=== PATIENT | female | born 1945 | race Caucasian/White ===

== ENCOUNTER 2017-02-07 10:46 | Outpatient (CLI) | payer MEDICARE, OTHER | END 2017-02-07 10:47 | disposition home or self-care (01) | DX: I10 Essential (primary) hypertension (principal); R07.89 Other chest pain; E78.5 Hyperlipidemia, unspecified; R53.82 Chronic fatigue, unspecified; R00.2 Palpitations; I65.23 Occlusion and stenosis of bilateral carotid arteries; R42 Dizziness and giddiness; R25.1 Tremor, unspecified ==

== ENCOUNTER 2017-05-24 09:06 | Outpatient (CLI) | payer MEDICARE, OTHER ==
[2017-05-24 10:51] LABS: CHOL/HDL RATIO 2.8 (<4.4); CHOLESTEROL 150 mg/dL; HDL CHOLESTEROL 53 mg/dL; LDL/HDL RATIO 1.4 (<4.4); TRIGLYCERIDES 103 mg/dL; VLDL CHOLESTEROL 21 mg/dL
== END 2017-05-24 09:07 | disposition home or self-care (01) ==
LOC: LAB 09:06
PROVIDERS: ATTEND Family Medicine
DX: E78.5 Hyperlipidemia, unspecified (principal)
CPT/HCPCS: 36415; 80061

== ENCOUNTER 2017-08-17 11:23 | Outpatient (CLI) | payer MEDICARE, OTHER ==
--- NOTE | 2017-08-18 10:07 | Mammography Report ---
DIGITAL BILATERAL SCREENING MAMMOGRAM: 08/17/2017 COMPARISON STUDY: 08/17/2016 INDICATION: Screening mammography. TECHNIQUE: Routine CC and MLO projections were obtained of the breasts. FINDINGS: Parenchymal tissue within both breasts is heterogeneously dense, which may lower the sensi tivity of mammography; however, there are no dominant masses, suspicious microcalcifications, or seco ndary signs of malignancy. In comparison to the previous studies, there are no significant changes. Stable postsurgical changes of the right breast. There are bilateral subglandular implants. ASSESSMENT: NO MAMMOGRAPHIC EVIDENCE OF MALIGNANCY. NO SIGNIFICANT INTERVAL CHANGES. RECOMMENDATION: Screening mammography is recommended annually. BIRADS CATEGORY 2- BENIGN FINDINGS. STANDARD QUALIFYING STATEMENTS 1. This examination was reviewed with the aid of Computed-Aided Detection (CAD). 2. A negative or benign imaging report should not delay biopsy if clinically suspicious findings are present. Consider surgical consultation if warranted. More than 5% of cancers are not identified by i maging. 3. Dense breasts may obscure an underlying neoplasm. JOB #: [id number] EXT JOB #:[id number]
== END 2017-08-17 11:24 | disposition home or self-care (01) ==
LOC: DI 11:23
PROVIDERS: ATTEND Family Medicine
DX: Z12.31 Encounter for screening mammogram for malignant neoplasm of breast (principal); Z98.82 Breast implant status
CPT/HCPCS: 77067

== ENCOUNTER 2018-06-05 09:17 | Day surgery (SDC) | payer MEDICARE, OTHER ==
[2018-06-05] MEDS ORDERED: LACTATED RINGERS 1,000 ML IV ONE (09:54)
[2018-06-05] MEDS ORDERED: LIDO GARGLE 30 ML BOTTLE ONE (10:27)
[2018-06-05] MEDS ORDERED: MIDAZOLAM 2 MG/2 ML VIAL IVP ONE (10:33)
[2018-06-05] MEDS ORDERED: fentaNYL 250 MCG/5 ML VIAL IVP ONE (10:33)
[2018-06-05 12:16] VITALS: BP 131/81
== END 2018-06-05 09:18 | disposition home or self-care (01) ==
LOC: SDS 09:17
PROVIDERS: ATTEND Surgery
PROC: 0DB78ZX Excision of Stomach, Pylorus, Via Natural or Artificial Opening Endoscopic, Diagnostic (ICD-10-PCS; 2018-06-05)
PROC: 0DJD8ZZ Inspection of Lower Intestinal Tract, Via Natural or Artificial Opening Endoscopic (ICD-10-PCS; principal; 2018-06-05 10:30)
PROC: 0DB58ZX Excision of Esophagus, Via Natural or Artificial Opening Endoscopic, Diagnostic (ICD-10-PCS; 2018-06-05 10:30)
DX: K21.9 Gastro-esophageal reflux disease without esophagitis (principal); R10.13 Epigastric pain; K20.9 Esophagitis, unspecified; K25.9 Gastric ulcer, unspecified as acute or chronic, without hemorrhage or perforation; K64.8 Other hemorrhoids; K64.4 Residual hemorrhoidal skin tags; I10 Essential (primary) hypertension
CPT/HCPCS: 43239; 45378; 87081; A9270; J3010; J7120

== ENCOUNTER 2018-07-25 10:37 | Outpatient (CLI) | payer MEDICARE, OTHER ==
--- NOTE | 2018-07-25 16:32 | Ultrasound Report ---
Reason: CAROTID STENOSIS Procedure Date: 07/25/2018 Accession Number: [id number] / [id number] Procedure: US - Carotid Doppler Complete CPT Code: FULL RESULT: EXAM: BILATERAL CAROTID AND VERTEBRAL ARTERY DUPLEX DOPPLER ULTRASOUND: EXAM DATE: 07/25/2018 11:40 AM CLINICAL HISTORY: Carotid stenosis. COMPARISON: None. TECHNIQUE: Grayscale imaging, color Doppler, and duplex spectral Doppler were used to evaluate the carotid and vertebral arteries bilaterally. Static images were obtained. FINDINGS: Subjectively, there is 3 mm thick hypoechoic/soft plaque at the left carotid bulb. Similar focal hypoechoic/soft plaque is seen in the right carotid bulb, subjectively less. No hemodynamically significant plaque is identified in the right or left common or internal carotid arteries. Normal antegrade flow is present in bilateral vertebral arteries. VELOCITIES (cm/sec): Right CCA mid: PSV 95 cm/sec CCA dist: PSV 77 cm/sec ICA prox: PSV 63 cm/sec, EDV 20 cm/sec ICA mid: PSV 79 cm/sec, EDV 24 cm/sec ICA dist: PSV 105 cm/sec, EDV 33 cm/sec ECA: PSV 72 cm/sec Vert: PSV 54 cm/sec ICA/CCA: 1.36 Left CCA mid: PSV 93 cm/sec CCA dist: PSV 67 cm/sec ICA prox: PSV 55 cm/sec, EDV 14 cm/sec ICA mid: PSV 57 cm/sec, EDV 21 cm/sec ICA dist: PSV 78 cm/sec, EDV 31 cm/sec ECA: PSV 76 cm/sec Vert: PSV 58 cm/sec ICA/CCA: 1.16 ICA diameter stenosis: Right: <50% by velocity and <70% by NASCET criteria. Left: <50% by velocity and <70% by NASCET criteria. IMPRESSION: 1. No hemodynamically significant bilateral carotid artery plaquing. 2. In the right carotid artery there are no elevated carotid artery velocities to suggest hemodynamically significant stenosis. 3. In the left carotid artery there are no elevated carotid artery velocities to suggest hemodynamically significant stenosis. 4. Normal antegrade flow is present in bilateral vertebral arteries. General Recommendations: Stenosis =50% ICA - Follow-up ultrasound 6-12 months Stenosis <50% ICA - High Risk Patient with plaque - Follow-up ultrasound 1-2 years Normal Study but High Risk Patient - Follow-up ultrasound 3-5 years Management recommendations and diagnostic criteria are based on current IAC endorsed standards in Carotid Artery Stenosis: Grayscale and Doppler Ultrasound Diagnosis. Validated velocity measurements with angiographic measurements and velocity criteria are extrapolated from diameter data as defined by the Society of Radiologists in Ultrasound Consensus Conference Radiology 2003; 229;340-346. RADIA
== END 2018-07-25 10:38 | disposition home or self-care (01) ==
LOC: DI 10:37
PROVIDERS: ATTEND Family Medicine
DX: I65.29 Occlusion and stenosis of unspecified carotid artery (principal)
CPT/HCPCS: 93880

== ENCOUNTER 2018-08-18 10:57 | Outpatient (CLI) | payer MEDICARE, OTHER ==
--- NOTE | 2018-08-21 12:35 | Mammography Report ---
Reason: SCREEN w IMPS BALBIR Procedure Date: 08/18/2018 Accession Number: [id number] / [id number] Procedure: [facility] - Screening Mammo Impl w/Balbir CPT Code: FULL RESULT: EXAM: Screening Mammo Impl w/Balbir DATE: 08/18/2018 11:50 AM CLINICAL HISTORY: 72 year-old nulliparous female with history of silicone breast implants in 1981 and breast biopsy . TECHNIQUE: Bilateral CC and MLO views were obtained. Bilateral CC and MLO implant displaced views were also obtained. COMPARISON: 08/17/2017, 08/17/2016, 08/15/2015, 08/06/2014. FINDINGS: The breasts demonstrate heterogeneously dense fibroglandular parenchyma bilaterally. Redemonstration of bilateral breast implants. Postbiopsy changes of the right breast are stable. No suspicious masses, clustered microcalcifications, or regions of architectural distortion are identified. IMPRESSION: Benign findings RECOMMENDATION: Routine annual screening unless otherwise clinically indicated. BIRADS CATEGORY 2: Benign findings STANDARD QUALIFYING STATEMENTS: 1. This examination was not reviewed with the aid of Computer-Aided Detection (CAD). 2. A negative or benign imaging report should not delay biopsy if clinically suspicious findings are present. Consider surgical consultation if warrented. More than 5% of cancers are not identified by imaging. 3. Dense breasts may obscure an underlying neoplasm. 4. This examination was reviewed with the aid of 3D breast imaging (tomosynthesis).
== END 2018-08-18 10:58 | disposition home or self-care (01) ==
LOC: DI 10:57
DX: Z12.31 Encounter for screening mammogram for malignant neoplasm of breast (principal); Z98.82 Breast implant status
CPT/HCPCS: 77063; 77067

== ENCOUNTER 2018-08-18 11:16 | Outpatient (CLI) | payer MEDICARE, OTHER ==
[2018-08-18 12:26] LABS: HB2 TOTAL 16.1 g/dL; HEMOGLOBIN A1C 0.54 g/dL; HEMOGLOBIN A1C % 5.2 % (4.6-6.2)
[2018-08-18 12:28] LABS: ALBUMIN 4.4 g/dL (3.2-5.5); ALBUMIN/GLOBULIN RATIO 1.6 (1.0-2.2); ALKALINE PHOSPHATASE 53 IU/L (42-121); ALT ALANINE AMINOTRANSFERASE 17 IU/L (10-60); AST ASPARTATE AMINOTRANSFERASE 24 IU/L (10-42); BUN - BLOOD UREA NITROGEN 15 mg/dL (6-20); CALCIUM 9.4 mg/dL (8.5-10.3); CARBON DIOXIDE - CO2 30 mmol/L (21-32); CHLORIDE 101 mmol/L (101-111); CHOL/HDL RATIO 2.7 (<4.4); CHOLESTEROL 177 mg/dL; CREATININE 0.7 mg/dL (0.4-1.0); GFR - MDRD 82 (>89); GLUCOSE 100 mg/dL (70-100); HDL CHOLESTEROL 65 mg/dL; LDL CHOLESTEROL,CALCULATED 90 mg/dL; LDL/HDL RATIO 1.4 (<4.4); SODIUM 140 mmol/L (135-145); TOTAL PROTEIN 7.1 g/dL (6.7-8.2); VLDL CHOLESTEROL 22 mg/dL
[2018-08-18 12:31] LABS: BASOPHILS % (AUTO) 0.7 %; EOSINOPHILS # (AUTO) 0.1 10^3/uL (0.0-0.7); EOSINOPHILS % (AUTO) 1.7 %; HGB - HEMOGLOBIN 14.6 g/dL (12.0-16.0); LYMPHOCYTES # (AUTO) 2.2 10^3/uL (1.5-3.5); LYMPHOCYTES % (AUTO) 33.8 %; MEAN CORPUSCULAR HEMOGLOBIN 28.8 pg (27.0-31.0); MEAN CORPUSCULAR HGB CONC 33.9 g/dL (32.0-36.0); MEAN CORPUSCULAR VOLUME 84.9 fL (81.0-99.0); MEAN PLATELET VOLUME 8.3 fL (7.9-10.8); MONOCYTES # (AUTO) 0.5 10^3/uL (0.0-1.0); MONOCYTES % (AUTO) 7.3 %; NEUTROPHILS # (AUTO) 3.7 10^3/uL (1.5-6.6); NEUTROPHILS % (AUTO) 56.5 %; PLT - PLATELET COUNT 190 10^3/uL (130-450); RED BLOOD COUNT 5.08 10^6/uL (4.20-5.40); RED CELL DISTRIBUTION WIDTH 13.3 % (12.0-15.0); WHITE BLOOD COUNT 6.5 x10^3/uL (4.8-10.8)
[2018-08-24 14:06] LABS: HEPATITIS C ANTIBODY NON-REACTIVE (NON-REACTIVE)
== END 2018-08-18 11:17 | disposition home or self-care (01) ==
LOC: LAB 11:16
PROVIDERS: ATTEND Family Medicine
DX: E78.5 Hyperlipidemia, unspecified (principal); R73.9 Hyperglycemia, unspecified; R30.0 Dysuria; F41.8 Other specified anxiety disorders; Z11.59 Encounter for screening for other viral diseases
CPT/HCPCS: 36415; 80053; 80061; 83036; 83721; 84443; 85025; 86803; 87086

== ENCOUNTER 2019-02-15 13:03 | Outpatient (CLI) | payer MEDICARE, OTHER ==
[~2019-02-15 13:03] MED LIST: ALBUTEROL NEB 2.5 MG/3 ML INH ONE
--- NOTE | 2019-02-15 16:39 | XRAY Report ---
Reason: DYSPNEA,COUGH Procedure Date: 02/15/2019 Accession Number: [id number] / [id number] Procedure: XR - Chest 2 View X-Ray CPT Code: 74414 FULL RESULT: EXAM: CHEST RADIOGRAPHY EXAM DATE: 02/15/2019 02:46 PM. CLINICAL HISTORY: Dyspnea, cough. COMPARISON: CHEST 2 VIEW PA/LAT 11/07/2015 9:19 AM. TECHNIQUE: 2 views. FINDINGS: Lungs/Pleura: No focal opacities evident. No pleural effusion. No pneumothorax. Normal volumes. Mediastinum: Heart and mediastinal contours are unremarkable. Other: The bones are qualitatively osteopenic; this limits evaluation for underlying fractures or masses. IMPRESSION: No acute airspace disease is detected. RADIA
== END 2019-02-15 13:04 | disposition home or self-care (01) ==
LOC: DI 13:03
PROVIDERS: ATTEND Family Medicine
DX: R06.00 Dyspnea, unspecified (principal); R05 Cough
CPT/HCPCS: 71046; 94010; 94729

== ENCOUNTER 2019-10-15 16:31 | Emergency (ER) | payer MEDICARE, OTHER ==
--- NOTE | 2019-10-15 17:07 | XRAY Report ---
Reason: Chest Pain Procedure Date: 10/15/2019 Accession Number: [id number] / [id number] Procedure: XR - Chest 1 View X-Ray CPT Code: 76217 Final Report FULL RESULT: EXAM: CHEST RADIOGRAPHY EXAM DATE: 10/15/2019 04:49 PM. CLINICAL HISTORY: Chest Pain. COMPARISON: CHEST 2 VIEW 02/15/2019 2:40 PM. TECHNIQUE: 1 view. FINDINGS: Lungs/Pleura: No focal opacities evident. No pleural effusion. No pneumothorax. Mediastinum: Within exam limitations, the cardiomediastinal contour is normal. Other: Status post bilateral breast implant with mild and heterogeneous capsular calcification visualized again. IMPRESSION: Negative for acute cardiopulmonary process, pneumonia or cardiomegaly. RADIA
[2019-10-15 17:16] LABS: BASOPHILS # (AUTO) 0.1 10^3/uL (0.0-0.1); BASOPHILS % (AUTO) 0.7 %; EOSINOPHILS # (AUTO) 0.1 10^3/uL (0.0-0.7); EOSINOPHILS % (AUTO) 1.5 %; HGB - HEMOGLOBIN 14.2 g/dL (12.0-16.0); LYMPHOCYTES # (AUTO) 2.5 10^3/uL (1.5-3.5); LYMPHOCYTES % (AUTO) 33.1 %; MEAN CORPUSCULAR HEMOGLOBIN 28.2 pg (27.0-31.0); MEAN CORPUSCULAR HGB CONC 32.3 g/dL (32.0-36.0); MEAN CORPUSCULAR VOLUME 87.3 fL (81.0-99.0); MEAN PLATELET VOLUME 9.6 fL (7.9-10.8); MONOCYTES # (AUTO) 0.6 10^3/uL (0.0-1.0); MONOCYTES % (AUTO) 8.3 %; NEUTROPHILS # (AUTO) 4.2 10^3/uL (1.5-6.6); PLT - PLATELET COUNT 198 10^3/uL (130-450); RED BLOOD COUNT 5.04 10^6/uL (4.20-5.40); WHITE BLOOD COUNT 7.5 x10^3/uL (4.8-10.8)
[2019-10-15 17:30] LABS: ALBUMIN 4.3 g/dL (3.2-5.5); ALBUMIN/GLOBULIN RATIO 1.5 (1.0-2.2); BILIRUBIN,TOTAL 0.5 mg/dL (0.2-1.0); CALCIUM 9.3 mg/dL (8.5-10.3); CREATININE 0.8 mg/dL (0.4-1.0); TOTAL PROTEIN 7.1 g/dL (6.7-8.2)
[2019-10-15] MEDS ORDERED: SUCRALFATE 1 GM/10 ML UDC PO STA (18:16)
[2019-10-15] MEDS ORDERED: MAG HYDROX/AL HYDROX/SIMETH 30 ML UDC PO STA (18:16)
[2019-10-15] MEDS ORDERED: LIDOCAINE VISCOUS 2% 15 ML UDC MM STA (18:16)
[2019-10-15 18:27] VITALS: BP 164/95
--- NOTE | 2019-10-15 18:54 | ED Physician Documentation ---
PD HPI CHEST PAIN - Stated complaint Stated Complaint: CP - Chief complaint Chief Complaint: Cardiac - History obtained from History obtained from: Patient, Family - History of Present Illness Timing - onset: Yesterday Timing - onset during: Rest - Additional information Additional information: 73-year-old female states that she has had sharp chest pain for the past 3 to 6 months. She states she also has epigastric pain for the past 3 to 6 months. Nothing makes it better or worse. No history of cardiac disease. She states that the chest pain is intermittent and on the left side. Worse with movement and better with rest. Review of Systems Constitutional: denies: Fever, Chills Ears: denies: Ear pain Nose: denies: Rhinorrhea / runny nose, Congestion Cardiac: denies: Palpitations Respiratory: denies: Cough, Wheezing GI: denies: Vomiting Skin: denies: Rash Musculoskeletal: denies: Neck pain, Back pain Neurologic: denies: Headache PD PAST MEDICAL HISTORY - Past Medical History Past Medical History: Yes Cardiovascular: Hypertension, High cholesterol Respiratory: None Endocrine/Autoimmune: None GI: GERD : Other HEENT: None Psych: Depression Musculoskeletal: Osteoarthritis, Other Derm: None - Past Surgical History General: Cholecystectomy Ortho: Knee replacement HEENT: Tonsil/Adenoidectomy - Present Medications Home Medications: Ambulatory Orders Medication Instructions Recorded Confirmed Cholecalciferol (Vitamin D3) 1 tab PO DAILY 11/26/13 07/07/16 [Vitamin D-3] Citalopram [CeleXA] 40 mg PO DAILY 11/26/13 07/07/16 Glucosamine HCl 1 tab PO DAILY 11/26/13 07/07/16 Losartan [Cozaar] 50 mg PO DAILY 11/26/13 07/07/16 Multivitamin [Multi-Vitamin Daily] 1 tab PO DAILY 11/26/13 07/07/16 Simvastatin 40 mg PO DAILY 11/26/13 07/07/16 Nitrofurantoin Monohyd/M-Cryst 100 mg PO BID 06/02/18 [Macrobid 100 mg Capsule] Omeprazole [PriLOSEC] 20 mg PO DAILY 06/02/18 06/05/18 - Allergies Allergies/Adverse Reactions: Allergies Allergy/AdvReac Type Severity Reaction Status Date / Time adhesive AdvReac Rash Verified 10/15/19 16:39 - Social History Does the pt smoke?: No Smoking Status: Never smoker Does the pt have substance abuse?: No - POLST Patient has POLST: No PD ED PE NORMAL - Vitals Vital signs reviewed: Yes - General General: Alert and oriented X 3, No acute distress, Well developed/nourished - HEENT HEENT: PERRL, Moist mucous membranes - Neck Neck: Supple, no meningeal sign - Cardiac Cardiac: RRR, Strong equal pulses - Respiratory Respiratory: No respiratory distress, Clear bilaterally - Abdomen Abdomen: Soft, Non tender, Non distended - Back Back: No CVA TTP - Derm Derm: Warm and dry - Extremities Extremities: No calf tenderness / cord - Neuro Neuro: Alert and oriented X 3 - Psych Psych: Normal mood, Normal affect Results - Vitals Vitals: Vital Signs - 24 hr 10/15/19 10/15/19 16:35 18:26 Temperature 36.7 C Heart Rate 81 69 Respiratory 18 14 Rate Blood Pressure 164/77 H 164/95 H O2 Saturation 99 96 Oxygen O2 Source Room air - EKG (time done) 1639 Rate: Rate (enter#) (81) Rhythm: NSR [place]: Normal Intervals: Normal [place] QRS: Normal Ischemia: Normal ST segments - Labs Labs: Laboratory Tests 10/15/19 10/15/19 10/15/19 17:10 17:10 17:10 WBC 7.5 RBC 5.04 Hgb 14.2 Hct 44.0 MCV 87.3 MCH 28.2 MCHC 32.3 RDW 13.0 Plt Count 198 MPV 9.6 Neut # (Auto) 4.2 Lymph # (Auto) 2.5 [place] # (Auto) 0.6 Eos # (Auto) 0.1 Baso # (Auto) 0.1 Absolute Nucleated RBC 0.00 Nucleated RBC % 0.0 Sodium 138 Potassium 4.2 Chloride 102 Carbon Dioxide 29 Anion Gap 7.0 BUN 13 Creatinine 0.8 Estimated GFR (MDRD) 70 L Glucose 97 Calcium 9.3 Total Bilirubin 0.5 AST 25 ALT 19 Alkaline Phosphatase 61 Troponin I High Sens < 2.3 L Total Protein 7.1 Albumin 4.3 Globulin 2.8 Albumin/Globulin Ratio 1.5 Lipase 38 - Rads (name of study) cxr Radiology: Prelim report reviewed, EMP read contemporaneously, See rad report (no acute disease) PD MEDICAL DECISION MAKING - ED course Complexity details: reviewed results, re-evaluated patient, considered differential (No ST elevation [place], no aortic dissection, no PE, no tension pneumothorax, no aortic aneurysm), d/w patient ED course: Patient is well-appearing, nontoxic. Afebrile. Chest pain does not appear consistent with acute coronary syndrome, pulmonary embolus, pneumothorax. No acute findings on EKG, chest x-ray or laboratory testing. We will have her follow-up with her doctor for further care. Patient does feel better after GI cocktail. Patient counseled regarding signs and symptoms for which I believe and urgent re-evaluation would be necessary. Patient with good understanding of and agreement to plan and is comfortable going home at this time This document was made in part using voice recognition software. While efforts are made to proofread this document, sound alike and grammatical errors may occur. Departure - Departure Disposition: 01 Home, Self Care Clinical Impression: Chest pain Qualifiers: Chest pain type: unspecified Qualified Code(s): R07.9 - Chest pain, unspecified Condition: Good Instructions: ED Chest Pain Atypical Unkn Cause Follow-Up: Ravindra Justice MD [Primary Care Provider] - Within 1 week Comments: The cause of your symptoms is unclear today. Your heart tests are normal. Follow-up with your doctor for further care. You should have a cardiac stress test within the next week. Discharge Date/Time: 10/15/19 19:03
== END 2019-10-15 19:03 | disposition home or self-care (01) ==
LOC: ED 16:31
DX: R07.9 Chest pain, unspecified (principal); K21.9 Gastro-esophageal reflux disease without esophagitis; I10 Essential (primary) hypertension
CPT/HCPCS: 36415; 71045; 80053; 83690; 84484; 85025; 93005; 99284; A9270

== ENCOUNTER 2019-11-12 11:49 | Outpatient (CLI) | payer MEDICARE, OTHER ==
[2019-11-12] MEDS ORDERED: BUFFERED LIDOCAINE 10 ML SYRINGE ONE (12:08)
[2019-11-12] MEDS ORDERED: IOTHALAMATE MEGLUMINE 50 ML VIAL ONE (12:08)
[2019-11-12] MEDS ORDERED: BUFFERED LIDOCAINE 10 ML SYRINGE IU ONE (13:09)
[2019-11-12] MEDS ORDERED: methylPREDNISolone ACETATE 80 MG/ML VIAL IM ONE (13:09)
[2019-11-12] MEDS ORDERED: IOTHALAMATE MEGLUMINE 50 ML VIAL IVP ONE (13:09)
[2019-11-12] MEDS ORDERED: BUPIVACAINE 0.5% PF 10 ML VIAL IM ONE (13:09)
--- NOTE | 2019-11-12 16:33 | XRAY Report ---
Reason: LT SHLDR OSTEOARTHRITIS Procedure Date: 11/12/2019 Accession Number: [id number] / [id number] Procedure: [place] - Inj/Aspiration Major Joint CPT Code: Final Report FULL RESULT: EXAM: LEFT SHOULDER Injection with Fluoroscopic Guidance EXAM DATE: 11/12/2019 01:01 PM. CLINICAL HISTORY: LT SHLDR OSTEOARTHRITIS. Severe pain COMPARISON: SHOULDER 3 VIEW LT 10/15/2019 3:54 PM. TECHNIQUE: The risks, benefits, and alternatives of the procedure were discussed with the patient. All questions were answered. Written and verbal consent were obtained. The left shoulder joint was marked under fluoroscopy and prepped and draped in a sterile manner. Local anesthesia was performed with 1% lidocaine. A 22-gauge needle was then inserted into the joint. Needle placement in the joint space was confirmed with injection of 2 mL of iodinated contrast. A solution containing 8 mL 0.5% ropivacaine and 2 mL (40 mg/mL) Depo-Medrol was then injected. The needle was removed without immediate complication. Other: None. Fluoroscopy Time: 40 seconds. Number of fluoroscopy images: 2. FINDINGS: Injection: Fluoroscopic images demonstrate needle placement and contrast in the left shoulder joint. IMPRESSION: Successful fluoroscopically guided injection of anesthetic and steroid in the left shoulder joint with improvement of the patient's pain. RADIA
== END 2019-11-12 11:50 | disposition home or self-care (01) ==
LOC: DI 11:49
PROVIDERS: ATTEND Orthopaedic Surgery Sports Medicine
DX: M19.012 Primary osteoarthritis, left shoulder (principal)
CPT/HCPCS: 20610; Q9961

== ENCOUNTER 2020-04-21 15:22 | Emergency (ER) | payer MEDICARE, OTHER ==
--- NOTE | 2020-04-21 16:04 | XRAY Report ---
PROCEDURE: Chest 1 View X-Ray INDICATIONS: Chest pain TECHNIQUE: One view of the chest was acquired. COMPARISON: None. FINDINGS: Surgical changes and devices: None. Lungs and pleura: No pleural effusions or pneumothorax. Lungs are clear. Mediastinum: Mediastinal contours appear normal. Heart size is normal. Bones and chest wall: No suspicious bony lesions. Overlying soft tissues appear unremarkable. [place] re left shoulder joint degeneration. IMPRESSION: No acute disease Reviewed by: Nate Barrera MD on 04/21/2020 4:02 PM PDT Approved by: Nate Barrera MD on 04/21/2020 4:02 PM PDT Station ID: [id number]
[2020-04-21 16:06] LABS: BASOPHILS # (AUTO) 0.1 10^3/uL (0.0-0.1); BASOPHILS % (AUTO) 0.4 %; EOSINOPHILS # (AUTO) 0.1 10^3/uL (0.0-0.7); EOSINOPHILS % (AUTO) 0.5 %; HGB - HEMOGLOBIN 13.9 g/dL (12.0-16.0); LYMPHOCYTES # (AUTO) 2.6 10^3/uL (1.5-3.5); LYMPHOCYTES % (AUTO) 21.3 %; MEAN CORPUSCULAR HEMOGLOBIN 27.3 pg (27.0-31.0); MEAN CORPUSCULAR HGB CONC 32.5 g/dL (32.0-36.0); MEAN CORPUSCULAR VOLUME 83.9 fL (81.0-99.0); MEAN PLATELET VOLUME 10.3 fL (7.9-10.8); MONOCYTES % (AUTO) 7.8 %; NEUTROPHILS # (AUTO) 8.5 10^3/uL (1.5-6.6); NEUTROPHILS % (AUTO) 69.4 %; PLT - PLATELET COUNT 175 10^3/uL (130-450); RED CELL DISTRIBUTION WIDTH 12.5 % (12.0-15.0); WHITE BLOOD COUNT 12.3 x10^3/uL (4.8-10.8)
--- NOTE | 2020-04-21 16:12 | ED Physician Documentation ---
PD HPI CHEST PAIN - Stated complaint Stated Complaint: RT SIDE PAIN - Chief complaint Chief Complaint: Cardiac - History obtained from History obtained from: Patient - Additional information Additional information: 74-year-old woman with history of intermittent constipation. She had not had a bowel movement in about 4-5 days which she feels is not too much out of the ordinary for her. But then this morning at 2 AM she developed right flank pain radiating to the right upper quadrant. It is worse if she takes a deep breath. Review of Systems Constitutional: reports: Reviewed and negative Throat: reports: Reviewed and negative Cardiac: reports: Reviewed and negative Respiratory: reports: Reviewed and negative PD PAST MEDICAL HISTORY - Past Medical History Cardiovascular: Hypertension, High cholesterol Respiratory: None Endocrine/Autoimmune: None GI: GERD : Other HEENT: None Psych: Depression Musculoskeletal: Osteoarthritis, Other Derm: None - Past Surgical History General: Cholecystectomy Ortho: Knee replacement HEENT: Tonsil/Adenoidectomy - Present Medications Home Medications: Ambulatory Orders Medication Instructions Recorded Confirmed Cholecalciferol (Vitamin D3) 1 tab PO DAILY 11/26/13 07/07/16 [Vitamin D-3] Citalopram [CeleXA] 40 mg PO DAILY 11/26/13 07/07/16 Glucosamine HCl 1 tab PO DAILY 11/26/13 07/07/16 Losartan [Cozaar] 50 mg PO DAILY 11/26/13 07/07/16 Multivitamin [Multi-Vitamin Daily] 1 tab PO DAILY 11/26/13 07/07/16 Simvastatin 40 mg PO DAILY 11/26/13 07/07/16 Nitrofurantoin Monohyd/M-Cryst 100 mg PO BID 06/02/18 [Macrobid 100 mg Capsule] Omeprazole [PriLOSEC] 20 mg PO DAILY 06/02/18 06/05/18 Rivaroxaban [Xarelto] 15 mg PO BID #42 tablet 04/21/20 Rivaroxaban [Xarelto] 20 mg PO DAILY #30 tablet 04/21/20 - Allergies Allergies/Adverse Reactions: Allergies Allergy/AdvReac Type Severity Reaction Status Date / Time latex Allergy Unknown Verified 10/16/19 11:09 sulfamethoxazole Allergy Unknown Verified 10/16/19 11:09 [From Bactrim] trimethoprim [From Bactrim] Allergy Unknown Verified 10/16/19 11:09 adhesive AdvReac Rash Verified 10/15/19 16:39 - Social History Does the pt smoke?: No Smoking Status: Never smoker Does the pt have substance abuse?: No - POLST Patient has POLST: No PD ED PE NORMAL - Vitals Vital signs reviewed: Yes - General General: Alert and oriented X 3, No acute distress - HEENT HEENT: PERRL, EOMI - Neck Neck: Supple, no meningeal sign, No bony TTP - Cardiac Cardiac: RRR, No murmur - Respiratory Respiratory: No respiratory distress, Clear bilaterally - Abdomen Abdomen: Other (Mild right upper quadrant and right flank tenderness without surgical signs) - Back Back: No CVA TTP, No spinal TTP - Derm Derm: Normal color, Warm and dry - Extremities Extremities: No edema, No calf tenderness / cord - Neuro Neuro: Alert and oriented X 3, Normal speech Results - Vitals Vitals: Vital Signs - 24 hr 04/21/20 04/21/20 04/21/20 15:30 16:05 16:30 Temperature 36.3 C L Heart Rate 80 71 74 Respiratory 18 14 11 L Rate Blood Pressure 148/74 H 144/83 H 159/76 H O2 Saturation 96 96 97 04/21/20 04/21/20 17:00 17:30 Temperature Heart Rate 76 76 Respiratory 13 18 Rate Blood Pressure 165/81 H 167/76 H O2 Saturation 95 94 Oxygen O2 Source Room air - EKG (time done) 1547. Rate: Rate (enter#) (72) Rhythm: NSR [place]: Normal QRS: Low voltage Ischemia: Non specific changes. No: ST elevation c/w ischemia, ST depression Computer interpretation: Agree with computer - Labs Labs: Laboratory Tests 04/21/20 04/21/20 04/21/20 15:58 15:58 15:58 WBC 12.3 H RBC 5.10 Hgb 13.9 Hct 42.8 MCV 83.9 MCH 27.3 MCHC 32.5 RDW 12.5 Plt Count 175 MPV 10.3 Neut # (Auto) 8.5 H Lymph # (Auto) 2.6 [place] # (Auto) 1.0 Eos # (Auto) 0.1 Baso # (Auto) 0.1 Absolute Nucleated RBC 0.00 Nucleated RBC % 0.0 Sodium 134 L Potassium 3.8 Chloride 100 L Carbon Dioxide 25 Anion Gap 9.0 BUN 15 Creatinine 0.9 Estimated GFR (MDRD) 61 L Glucose 119 H Calcium 9.1 Total Bilirubin 1.1 H AST 19 ALT 14 Alkaline Phosphatase 52 Troponin I High Sens 4.2 Total Protein 7.1 Albumin 4.2 Globulin 2.9 Albumin/Globulin Ratio 1.4 Lipase 31 - Rads (name of study) 1v chest Radiology: EMP read contemporaneously (NAD) CT chest Angio Radiology: EMP read contemporaneously (Segmental and subsegmental left upper lobe and right lower lobe PEs) Abdominal CT Radiology: EMP read contemporaneously (2.2 cm right ovarian cyst) PD MEDICAL DECISION MAKING - ED course ED course: 74-year-old woman presents with acute right flank pain, she complains of constipation but I think this is spurious given the site. Differential diagnosis includes aortic dissection, PEs, off renal colic, biliary problem etc. Work-up demonstrates small PEs and has a PESI score of 75 and is started on Xarelto. Departure - Departure Disposition: 01 Home, Self Care Clinical Impression: Ovarian cyst, right Pulmonary embolism Qualifiers: Pulmonary embolism type: multiple subsegmental (without acute cor pulmonale) Qualified Code(s): I26.94 - Multiple subsegmental pulmonary emboli without acute cor pulmonale Abdominal pain Qualifiers: Abdominal location: generalized Qualified Code(s): R10.84 - Generalized abdominal pain Condition: Stable Record reviewed to determine appropriate education?: Yes Instructions: Embolism Pulmonary Dc Prescriptions: Rivaroxaban [Xarelto] 15 mg PO BID #42 tablet Rivaroxaban [Xarelto] 20 mg PO DAILY #30 tablet Comments: As discussed, you have small pulmonary emboli/blood clots in your lungs which are causing your pain. We also found a right ovarian cyst. For that talk with your doctor about a repeat ultrasound in 6 weeks. For the blood clots, we are starting you on a blood thinner. You need to take it religiously. For the first 3 weeks the dose is 15 mg twice a day, after that the dose is 20 mg once a day. He will be on it for I anticipate at least 3 to 6 months. Your primary care physician may want to refer you to a upholsterer inside/oncologist to have a more in-depth look into why this happened. Return for new or worsening symptoms. As discussed also return immediately if you hit your head or have black or tarry stools. For mild pain, I recommend Tylenol, try to avoid nonsteroidal anti-inflammatory drugs such as Motrin or Aleve while on the blood thinners.
[2020-04-21 16:21] LABS: ALBUMIN 4.2 g/dL (3.2-5.5); ALBUMIN/GLOBULIN RATIO 1.4 (1.0-2.2); BILIRUBIN,TOTAL 1.1 mg/dL (0.2-1.0); CALCIUM 9.1 mg/dL (8.5-10.3); CREATININE 0.9 mg/dL (0.4-1.0); TOTAL PROTEIN 7.1 g/dL (6.7-8.2)
[2020-04-21] MEDS ORDERED: IOVERSOL 320 100 ML VIAL IVP ONE ×2 (16:30→17:14)
--- NOTE | 2020-04-21 17:28 | CT Report ---
PROCEDURE: ANGIO CHEST W/WO INDICATIONS: pleuritic CP CONTRAST: IV CONTRAST: Optiray 320 ml: 100 PO CONTRAST: *NO PO CONTRAST TECHNIQUE: After the administration of intravenous contrast, 2 mm thick sections acquired from the pulmonary api lam to the posterior costophrenic angles. 3-dimensional maximum intensity projection (MIP) coronal a nd sagittal reformats were then acquired through the thorax. For radiation dose reduction, the follow ing was used: automated exposure control, adjustment of mA and/or kV according to patient size. COMPARISON: Chest radiograph dated 10/15/2019 FINDINGS: Image quality: Excellent. Pulmonary arteries: Pulmonary arteries are normal in size. There are filling defects within segmenta l and subsegmental branches of left upper lobe pulmonary artery branches. Intraluminal filling defect s also seen in right lower lobe segmental and subsegmental pulmonary artery branches consistent with extensive bilateral pulmonary emboli. Lungs and pleura: There is biapical scarring. Dependent atelectasis in posterior aspect of bilateral lung bain are seen. Scattered atelectasis in posterior and lateral periphery of bilateral lower lob es are also noted. No pleural effusions or pneumothorax. Central and peripheral airways are patent. Mediastinum: Heart size is normal, without pericardial effusion. No mediastinal or hilar adenopathy . Thoracic aorta is normal in caliber and enhancement. Esophagus is normal in caliber, with a small hiatal hernia. Bones and chest wall: Bilateral breast implants are intact. No suspicious bony lesions. Ribs and tho racic spine appear intact throughout. The thyroid is normal. No axillary or supraclavicular adenopa thy. Abdomen: Visualized upper abdominal solid organs appear normal in the early arterial phase of enhanc ement. IMPRESSION: 1. Pulmonary emboli involving segmental and subsegmental branches of left upper lobe and right lower lobe pulmonary arteries. 2. No thoracic aortic aneurysm or dissection. 3. No mediastinal or hilar lymphadenopathy. 4. Scattered atelectasis in bilateral lung bain. No pleural effusion or pneumothorax. Airways paten t. Reviewed by: Dhiraj Mckeon MD on 04/21/2020 5:27 PM PDT Approved by: Dhiraj Mckeon MD on 04/21/2020 5:27 PM PDT Station ID: [id number]
--- NOTE | 2020-04-21 17:38 | CT Report ---
PROCEDURE: Abdomen/Pelvis W INDICATIONS: Right flank pain CONTRAST: IV CONTRAST: Optiray 320 ml: 100 PO CONTRAST: *NO PO CONTRAST TECHNIQUE: After the administration of oral and intravenous contrast, 5 mm thick sections acquired from the diap hragms to the symphysis. 5 mm thick coronal and sagittal reformats were acquired. For radiation dos e reduction, the following was used: automated exposure control, adjustment of mA and/or kV accordin g to patient size. COMPARISON: None. FINDINGS: Image quality: Excellent. ABDOMEN: Lung bases: Lung bases are clear. Heart size is normal. Bilateral breast prosthesis. Solid organs: Liver and spleen are normal in size and enhancement. Gallbladder is surgically absent . Biliary system is non dilated. Pancreas enhances normally. No adrenal nodules. Kidneys demonstr ate normal size and enhancement, without hydronephrosis. Peritoneum and bowel: Bowel loops demonstrate normal wall thickness and caliber. No free fluid or a ir. Nodes and vessels: No retroperitoneal or mesenteric adenopathy by size criteria. Aorta and inferior vena cava are normal in size. Miscellaneous: No ventral hernias. PELVIS: Genitourinary: Bladder wall thickness is normal. Uterus is small consistent with age appropriate at formerly [facility]. There is a 2.2 cm right ovarian cyst. Left ovary is unremarkable. No pathological free fluid i n the cul-de-sac. Miscellaneous: No inguinal hernias or adenopathy. Bones: No suspicious bony lesions. No vertebral body compression fractures. Degenerative changes in lumbar spine. IMPRESSION: 1. A cause for the right flank pain is not identified on CT. 2. No acute intra-abdominal or pelvic process. 3. A 2.2 cm cyst in the right ovary. Reviewed by: Manpreet Vides MD on 04/21/2020 5:36 PM PDT Approved by: Manpreet Vides MD on 04/21/2020 5:36 PM PDT Station ID: [id number]
[2020-04-21 17:40] VITALS: BP 167/76
[2020-04-21] MEDS ORDERED: RIVAROXABAN 15 MG TABLET PO STA (17:49)
== END 2020-04-21 18:17 | disposition home or self-care (01) ==
LOC: ED 15:22
DX: I26.94 Multiple subsegmental thrombotic pulmonary emboli without acute cor pulmonale (principal); N83.201 Unspecified ovarian cyst, right side; R10.84 Generalized abdominal pain; I10 Essential (primary) hypertension
CPT/HCPCS: 36415; 71045; 71275; 74177; 80053; 83690; 84484; 85025; 93005; 99284; A9270; Q9967

== ENCOUNTER 2020-05-14 14:00 | Outpatient (CLI) | payer MEDICARE, OTHER | END 2020-05-14 23:59 | disposition home or self-care (01) | LOC: LAB.R 14:00 | PROVIDERS: ATTEND Family Medicine | DX: I26.99 Other pulmonary embolism without acute cor pulmonale (principal); Z20.828 Contact with and (suspected) exposure to other viral communicable diseases ==

== ENCOUNTER 2020-07-04 18:26 | Outpatient (CLI) | payer MEDICARE, OTHER ==
--- NOTE | 2020-07-04 23:01 | Ultrasound Report ---
PROCEDURE: Duplex Ext Veins Bilateral INDICATIONS: Multiple subsegmental pulmonary emboli TECHNIQUE: Real-time imaging, as well as color and pulse Doppler interrogation, were performed of the deep veins of both legs from the inguinal ligament to the popliteal fossa. COMPARISON: None available FINDINGS: The deep veins are normally compressible, and free of intraluminal thrombus. Color and pu lse Doppler demonstrate normal phasic intravascular flow. There is normal augmentation response to d istal compression maneuver. Mildly complicated right popliteal fossa cyst measuring 3.9 cm. There is a small amount of debris wit hout septation. No vascularity. IMPRESSION: 1. No DVT in either lower extremity. 2. Small right popliteal fossa cyst. Reviewed by: Yvette Childs MD on 07/04/2020 11:00 PM PDT Approved by: Yvette Childs MD on 07/04/2020 11:00 PM PDT Station ID: [id number]
== END 2020-07-04 18:27 | disposition home or self-care (01) ==
LOC: DI 18:26
PROVIDERS: ATTEND Internal Medicine
DX: M71.21 Synovial cyst of popliteal space [Baker], right knee (principal)
CPT/HCPCS: 93970

== ENCOUNTER 2020-07-05 14:27 | Outpatient (CLI) | payer MEDICARE, OTHER ==
--- NOTE | 2020-07-05 16:47 | Ultrasound Report ---
PROCEDURE: Pelvic w/Transvaginal INDICATIONS: RT SIDE OVARIAN CYST TECHNIQUE: Real-time scanning was performed of the pelvic organs, with image documentation. Additional endovagi nal scanning was necessary due to incomplete visualization of the adnexal and endometrial structures by transabdominal scanning. COMPARISON: CT abdomen pelvis 04/21/2020. FINDINGS: Transabdominal scanning: Limited scanning through the kidneys shows no hydronephrosis. No pathologi c free abdominal or pelvic fluid. Endovaginal scanning: Uterus: Uterus is normal in size at 5.0 x 2.3 x 3.5 cm. The endometrium measures 4 mm in combined t hickness. The uterus demonstrates multiple areas of heterogeneous echogenicity. In the right anterior intramural region a focus measuring 3 x 3 x 3 mm is identified. In the right posterior intramural re gion a 4 x 3 x 3 mm focus is present. In the left anterior jugular region a 10 x 11 x 11 mm focus is present. Nabothian cysts are present. Hyperechoic focus is present lower uterine segment, likely calc ification. Ovaries: Right ovary measures 2.8 x 2.6 x 2.5 cm volume 9.2 cc. Focus of hypoechogenicity is present measuring 2.5 x 2.3 x 2.2 cm, unchanged compared to prior CT exam. Left ovary measures 1.5 x 0.7 x 1 .2 cm, volume 0.6 cc. IMPRESSION: 1. Unchanged appearance of right ovarian cyst. 2. Multiple fibroids. Reviewed by: Melisa Steele MD on 07/05/2020 4:46 PM PDT Approved by: Melisa Steele MD on 07/05/2020 4:46 PM PDT Station ID: [id number]
== END 2020-07-05 14:28 | disposition home or self-care (01) ==
LOC: DI 14:27
PROVIDERS: ATTEND Internal Medicine
DX: N83.201 Unspecified ovarian cyst, right side (principal); D25.1 Intramural leiomyoma of uterus
CPT/HCPCS: 76830; 76856

== ENCOUNTER 2020-07-17 12:29 | Outpatient (CLI) | payer MEDICARE, OTHER ==
--- NOTE | 2020-07-18 12:03 | Mammography Report ---
BILATERAL DIGITAL SCREENING MAMMOGRAM 3D/2D WITH AUGMENTATION: 07/17/2020 CLINICAL: Routine screening. Comparison is made to exams dated: 08/18/2018 mammogram, 08/14/2017 mammogram, 08/14/2016 mammogram, 08/15/2015 mammogram, 08/06/2014 mammogram, and 07/12/2013 mammogram - [facility]. There are scattered fibroglandular elements in both breasts. Bilateral breast implants are stable. No significant masses, calcifications, or other findings are seen in either breast. There has been no significant interval change. IMPRESSION: NEGATIVE There is no mammographic evidence of malignancy. A 1 year screening mammogram is recommended. This exam was interpreted at Station ID: [id number]. NOTE: For mammograms, a report in lay terms will be sent to the patient. Approximately 15% of breast malignancies will not be visualized mammographically. In the management of a palpable breast mass, a negative mammogram must not discourage biopsy of a clinically suspicious lesion. Electronically Signed By: Nj bach/rick:07/17/2020 13:49:18 ACR BI-RADS Category 1: Negative 3341F PARENCHYMAL PATTERN: (A) - The breast(s) demonstrate(s) scattered fibroglandular densities. BI-RADS CATEGORY: (1) - 1 RECOMMENDATION: (ANNUAL) - Recommend routine annual screening mammography. [id number] 1 year screening LATERALITY: (B)
== END 2020-07-17 12:30 | disposition home or self-care (01) ==
LOC: DI.N 12:29
PROVIDERS: ATTEND Internal Medicine
DX: Z12.31 Encounter for screening mammogram for malignant neoplasm of breast (principal); Z98.82 Breast implant status
CPT/HCPCS: 77063; 77067

== ENCOUNTER 2021-01-27 07:00 | Outpatient (CLI) | payer MEDICARE, OTHER ==
[2021-01-27 17:54] LABS: BILIRUBIN,URINE NEGATIVE (NEGATIVE); GLUCOSE, URINE (UA) NEGATIVE (NEGATIVE); KETONES,URINE (UA) NEGATIVE (NEGATIVE); LEUKOCYTE ESTERASE, URINE NEGATIVE (NEGATIVE); NITRITE,URINE NEGATIVE (NEGATIVE); OCCULT BLOOD,URINE NEGATIVE (NEGATIVE); PH,URINE 5.5 PH (5.0-7.5); PROTEIN,URINE NEGATIVE (NEGATIVE); UROBILINOGEN,URINE 0.2 (NORMAL) E.U./dL (NORMAL)
[2021-01-27 17:56] LABS: CLARITY,URINE CLEAR (CLEAR)
[2021-01-27 18:04] LABS: BACTERIA,URINE Rare /HPF (None Seen); RBC,URINE 0-5 /HPF (0-5); SQUAMOUS EPITHELIAL CELL,UR RARE Squamous (<= Few); WBC,URINE 0-3 /HPF (0-5)
[2021-01-27 18:28] LABS: CHOL/HDL RATIO 2.9 (<4.4); CHOLESTEROL 197 mg/dL; HDL CHOLESTEROL 67 mg/dL; LDL CHOLESTEROL,CALCULATED 98 mg/dL; LDL/HDL RATIO 1.5 (<4.4); TRIGLYCERIDES 160 mg/dL; VLDL CHOLESTEROL 32 mg/dL
== END 2021-01-27 23:59 | disposition home or self-care (01) ==
LOC: LAB.WCP 07:00
PROVIDERS: ATTEND Family Medicine
DX: E78.5 Hyperlipidemia, unspecified (principal); N32.81 Overactive bladder
CPT/HCPCS: 36415; 80061; 81001; 83721; 87086

== ENCOUNTER 2021-11-24 07:49 | Emergency (ER) | payer MEDICARE, OTHER ==
[2021-11-24] MEDS ORDERED: CHERRY SYRUP 10 ML UDC PO ONE (08:45)
[2021-11-24] MEDS ORDERED: MECLIZINE 12.5 MG TABLET PO STA (08:45)
[2021-11-24] MEDS ORDERED: ONDANSETRON ODT 4 MG TABLET TL STA (08:45)
[2021-11-24] MEDS ORDERED: DEXAMETHASONE 10 MG/ML VIAL PO STA (08:45)
--- NOTE | 2021-11-24 08:49 | ED Physician Documentation ---
History of Present Illness - Stated complaint Stated Complaint: DIZZY/NAUSEA - Chief complaint Chief Complaint: General - History obtained from History obtained from: Patient - History of Present Illness Timing: How many days ago (3) - Additonal information Additional information: 75-year-old female with a prior history of unprovoked DVT with PE is not on Xarelto and she has developed dizziness and nausea over the past 3 days. She has worsening dizziness with movement of her head. She has not vomited.She does have a slight cough she is immunized and boosted. Review of Systems Constitutional: denies: Fever, Chills, Myalgias, Fatigue Eyes: denies: Decreased vision Ears: denies: Ear pain Nose: reports: Congestion. denies: Rhinorrhea / runny nose Throat: denies: Sore throat Cardiac: reports: Chest pain / pressure (inspritory pain to the left chest). denies: Palpitations Respiratory: reports: Cough. denies: Dyspnea GI: reports: Nausea. denies: Abdominal Pain, Vomiting, Constipation, Diarrhea : denies: Dysuria, Frequency Skin: denies: Rash Musculoskeletal: denies: Neck pain, Back pain, Extremity pain Neurologic: reports: Other (dizziness). denies: Generalized weakness, Focal weakness, Numbness PD PAST MEDICAL HISTORY - Past Medical History Past Medical History: Yes Cardiovascular: Hypertension, High cholesterol Respiratory: None Neuro: None Endocrine/Autoimmune: None GI: GERD STORE WORKER: None : Other HEENT: None Psych: Depression Musculoskeletal: Osteoarthritis, Other Derm: None - Past Surgical History Past Surgical History: Yes General: Cholecystectomy Ortho: Knee replacement HEENT: Tonsil/Adenoidectomy - Present Medications Home Medications: Ambulatory Orders Medication Instructions Recorded Confirmed Cholecalciferol (Vitamin D3) 1 tab PO DAILY 11/26/13 10/01/20 [Vitamin D-3] Citalopram [CeleXA] 40 mg PO DAILY 11/26/13 10/01/20 Losartan [Cozaar] 50 mg PO DAILY 11/26/13 10/01/20 Multivitamin [Multi-Vitamin Daily] 1 tab PO DAILY 11/26/13 10/01/20 Simvastatin 40 mg PO DAILY 11/26/13 10/01/20 Omeprazole [PriLOSEC] 20 mg PO DAILY 06/02/18 10/01/20 Metoprolol Succinate [Kapspargo 25 mg PO DAILY 06/11/20 10/01/20 Sprinkle] Prochlorperazine Maleate 10 mg PO Q6H PRN #90 tablet 07/30/20 10/01/20 [Compazine] Rivaroxaban [Xarelto] 20 mg PO DAILY #30 tablet 07/30/20 10/01/20 Meclizine HCl [Bonine] 25 mg PO Q6HR PRN #20 tab.chew 11/24/21 Sucralfate [Carafate] 1 gm PO ACHS #60 tablet 11/24/21 - Allergies Allergies/Adverse Reactions: Allergies Allergy/AdvReac Type Severity Reaction Status Date / Time latex Allergy Unknown Verified 11/24/21 08:12 sulfamethoxazole Allergy Unknown Verified 11/24/21 08:12 [From Bactrim] trimethoprim [From Bactrim] Allergy Unknown Verified 11/24/21 08:12 adhesive AdvReac Rash Verified 11/24/21 08:12 - Social History Does the pt smoke?: No Smoking Status: Never smoker Does the pt drink ETOH?: No Does the pt have substance abuse?: No - Immunizations Immunizations are current?: Yes - POLST Patient has POLST: No PD ED PE NORMAL - Vitals Vital signs reviewed: Yes (hypertensive) - General General: Alert and oriented X 3, No acute distress, Well developed/nourished - HEENT HEENT: Atraumatic, PERRL, EOMI, Ears normal, Other (dry mucous membranes. 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, No motor deficit, No sensory deficit, Normal speech Eye Opening: Spontaneous Motor: Obeys Commands Verbal: Oriented GCS Score: 15 - Psych Psych: Normal mood, Normal affect Results - Vitals Vitals: Vital Signs - 24 hr 11/24/21 11/24/21 08:06 11:32 Temperature 37.1 C Heart Rate 78 73 Respiratory 16 20 Rate Blood Pressure 139/75 H 189/101 H O2 Saturation 99 97 Oxygen O2 Source Room air - Labs Labs: Laboratory Tests 11/24/21 11/24/21 11/24/21 09:23 09:23 09:23 WBC 6.7 RBC 5.34 Hgb 14.5 Hct 44.5 MCV 83.3 MCH 27.2 MCHC 32.6 RDW 13.1 Plt Count 181 MPV 9.9 Neut # (Auto) 4.4 Lymph # (Auto) 1.6 [place] # (Auto) 0.6 Eos # (Auto) 0.1 Baso # (Auto) 0.0 Absolute Nucleated RBC 0.00 Nucleated RBC % 0.0 D-Dimer < 200.0 L Sodium 138 Potassium 3.8 Chloride 102 Carbon Dioxide 26 Anion Gap 10.0 BUN 13 Creatinine 0.8 Estimated GFR (MDRD) 70 L Glucose 111 H Calcium 9.4 Total Bilirubin 0.8 AST 23 ALT 17 Alkaline Phosphatase 41 L Total Protein 6.8 Albumin 3.9 Globulin 2.9 Albumin/Globulin Ratio 1.3 Lipase 34 - Rads (name of study) CT head without Radiology: Prelim report reviewed (Impression: No acute intracranial finding.), EMP read indepedently, See rad report PD MEDICAL DECISION MAKING - ED course Complexity details: reviewed results, re-evaluated patient, considered differential, d/w patient ED course: 75-year-old female with acute labyrinthitis has concerns about clots and stroke. There is no evidence of otitis media. The patient has nausea as well as abdo rosemarie pain. Biochemical profile entirely reassuring CT of the head unremarkable D-dimer normal. The patient is treated In the emergency department with dexamethasone Zofran and meclizine. She has improvement in her dizziness she has persistent abdominal pain and she is administered viscous lidocaine Mylanta. Departure - Departure Disposition: 01 Home, Self Care Clinical Impression: Labyrinthitis Qualifiers: Laterality: unspecified laterality Qualified Code(s): H83.09 - Labyrinthitis, unspecified ear Gastritis Qualifiers: Gastritis type: unspecified gastritis Chronicity: acute Gastritis bleeding: without bleeding Qualified Code(s): K29.00 - Acute gastritis without bleeding Condition: Stable Instructions: ED Labyrinthitis, ED PUD Vs Gastritis Follow-Up: Gabrielle Houser DO [Primary Care Provider] - Prescriptions: Meclizine HCl [Bonine] 25 mg PO Q6HR PRN #20 tab.chew PRN Reason: Dizziness Sucralfate [Carafate] 1 gm PO ACHS #60 tablet Comments: Bobbi today in the emergency department you have been diagnosed with labyrinthitis. This is a condition where the otoliths are out of place. There is an exercise to help put them back in place and this may help significantly with your symptoms. Follow the instruction sheet. There are medications for dizziness that are somewhat helpful. I have E scribed meclizine to [facility] in [place]. I have also E scribed Carafate to aid in the healing of gastritis.
[2021-11-24 09:32] LABS: BASOPHILS % (AUTO) 0.6 %; EOSINOPHILS # (AUTO) 0.1 10^3/uL (0.0-0.7); EOSINOPHILS % (AUTO) 1.2 %; HCT - HEMATOCRIT 44.5 % (37.0-47.0); HGB - HEMOGLOBIN 14.5 g/dL (12.0-16.0); LYMPHOCYTES # (AUTO) 1.6 10^3/uL (1.5-3.5); LYMPHOCYTES % (AUTO) 24.2 %; MEAN CORPUSCULAR HEMOGLOBIN 27.2 pg (27.0-31.0); MEAN CORPUSCULAR HGB CONC 32.6 g/dL (32.0-36.0); MEAN CORPUSCULAR VOLUME 83.3 fL (81.0-99.0); MEAN PLATELET VOLUME 9.9 fL (7.9-10.8); MONOCYTES # (AUTO) 0.6 10^3/uL (0.0-1.0); MONOCYTES % (AUTO) 8.2 %; NEUTROPHILS # (AUTO) 4.4 10^3/uL (1.5-6.6); NEUTROPHILS % (AUTO) 65.7 %; PLT - PLATELET COUNT 181 10^3/uL (130-450); RED BLOOD COUNT 5.34 10^6/uL (4.20-5.40); RED CELL DISTRIBUTION WIDTH 13.1 % (12.0-15.0); WHITE BLOOD COUNT 6.7 x10^3/uL (4.8-10.8)
--- NOTE | 2021-11-24 09:44 | CT Report ---
PROCEDURE: HEAD WO INDICATIONS: headache TECHNIQUE: Noncontrast 4.5 mm thick angled axial sections acquired from the foramen magnum to the vertex. For r adiation dose reduction, the following was used: automated exposure control, adjustment of mA and/or kV according to patient size. COMPARISON: None. FINDINGS: Image quality: Excellent. CSF spaces: Basal cisterns are patent. No extra-axial fluid collections. Ventricles are normal in size and shape. Brain: No midline shift. No intracranial masses or hemorrhage. Rice-white matter interface is norm al. Skull and face: Calvarium and visualized facial bones are intact, without suspicious lesions. Sinuses: Visualized sinuses and mastoids are clear. IMPRESSION: No acute intracranial finding. Reviewed by: Girma Melara MD on 11/24/2021 9:43 AM [facility] Approved by: Girma Melara MD on 11/24/2021 9:43 AM [facility] Station ID: [id number]
[2021-11-24 09:46] LABS: ALBUMIN 3.9 g/dL (3.2-5.5); ALBUMIN/GLOBULIN RATIO 1.3 (1.0-2.2); BILIRUBIN,TOTAL 0.8 mg/dL (0.2-1.0); CALCIUM 9.4 mg/dL (8.5-10.3); CREATININE 0.8 mg/dL (0.4-1.0); POTASSIUM 3.8 mmol/L (3.5-5.0); TOTAL PROTEIN 6.8 g/dL (6.7-8.2)
[2021-11-24] MEDS ORDERED: MAG HYDROX/AL HYDROX/SIMETH 30 ML UDC PO STA (10:14)
[2021-11-24] MEDS ORDERED: LIDOCAINE VISCOUS 2% 15 ML UDC MM STA (10:14)
[2021-11-24 13:04] VITALS: BP 165/103
== END 2021-11-24 13:03 | disposition home or self-care (01) ==
LOC: ED 07:49
DX: H83.09 Labyrinthitis, unspecified ear (principal); K29.00 Acute gastritis without bleeding; Z20.822 Contact with and (suspected) exposure to COVID-19; I10 Essential (primary) hypertension
CPT/HCPCS: 36415; 70450; 80053; 83690; 85025; 85379; 99282; 99283; A9270; Q0162; U0004

== ENCOUNTER 2021-12-29 16:00 | Outpatient (CLI) | payer MEDICARE, OTHER | END 2021-12-29 23:59 | disposition home or self-care (01) | LOC: LAB.WCP 16:00 | PROVIDERS: ATTEND Family Medicine | DX: N32.81 Overactive bladder (principal); R39.15 Urgency of urination | CPT/HCPCS: 87086 ==

== ENCOUNTER 2023-11-28 12:38 | Outpatient (CLI) | payer MEDICARE, OTHER ==
[2023-11-28 12:53] LABS: BASOPHILS # (AUTO) 0.1 10^3/uL (0.0-0.1); BASOPHILS % (AUTO) 0.7 %; EOSINOPHILS # (AUTO) 0.2 10^3/uL (0.0-0.7); EOSINOPHILS % (AUTO) 2.2 %; HCT - HEMATOCRIT 44.5 % (37.0-47.0); HGB - HEMOGLOBIN 14.2 g/dL (12.0-16.0); LYMPHOCYTES # (AUTO) 2.9 10^3/uL (1.5-3.5); LYMPHOCYTES % (AUTO) 38.7 %; MEAN CORPUSCULAR HEMOGLOBIN 27.3 pg (27.0-31.0); MEAN CORPUSCULAR HGB CONC 31.9 g/dL (32.0-36.0); MEAN CORPUSCULAR VOLUME 85.4 fL (81.0-99.0); MEAN PLATELET VOLUME 9.7 fL (7.9-10.8); MONOCYTES # (AUTO) 0.6 10^3/uL (0.0-1.0); MONOCYTES % (AUTO) 7.7 %; NEUTROPHILS # (AUTO) 3.8 10^3/uL (1.5-6.6); NEUTROPHILS % (AUTO) 50.6 %; PLT - PLATELET COUNT 236 10^3/uL (130-450); RED BLOOD COUNT 5.21 10^6/uL (4.20-5.40); RED CELL DISTRIBUTION WIDTH 13.1 % (12.0-15.0); WHITE BLOOD COUNT 7.6 x10^3/uL (4.8-10.8)
[2023-11-28 13:05] LABS: ESTIMATED AVERAGE GLUCOSE 108 mg/dL (70-100); HEMOGLOBIN A1c% 5.4 % (4.27-6.07)
[2023-11-28 13:32] LABS: THYROID STIMULATING HORMONE 2.35 uIU/mL (0.34-5.60)
[2023-11-28 13:37] LABS: FERRITIN 10.8 ng/mL (11.0-306.8)
[2023-11-28 13:40] LABS: % IRON SATURATION 21 % (20-50); ALBUMIN 4.1 g/dL (3.2-5.5); ALBUMIN/GLOBULIN RATIO 1.5 (1.0-2.2); ALKALINE PHOSPHATASE 49 IU/L (42-121); ALT ALANINE AMINOTRANSFERASE 16 IU/L (10-60); AST ASPARTATE AMINOTRANSFERASE 26 IU/L (10-42); BILIRUBIN,TOTAL 0.9 mg/dL (0.2-1.0); BUN - BLOOD UREA NITROGEN 12 mg/dL (6-20); CALCIUM 9.7 mg/dL (8.5-10.3); CARBON DIOXIDE - CO2 29 mmol/L (21-32); CHLORIDE 105 mmol/L (101-111); CHOL/HDL RATIO 2.7 (<4.4); CHOLESTEROL 149 mg/dL; CREATININE 0.8 mg/dL (0.6-1.3); GFR - MDRD 69 (>89); GLUCOSE 132 mg/dL (74-104); HDL CHOLESTEROL 56 mg/dL; IRON 80 ug/dL (50-212); LDL CHOLESTEROL,CALCULATED 62 mg/dL; LDL/HDL RATIO 1.1 (<4.4); POTASSIUM 4.1 mmol/L (3.5-4.5); SODIUM 140 mmol/L (135-145); TOTAL IRON BINDING CAPACITY 372 ug/dL (250-450); TOTAL PROTEIN 6.8 g/dL (6.4-8.9); TRANSFERRIN 266 mg/dL (203-362); TRIGLYCERIDES 154 mg/dL (48-352); VLDL CHOLESTEROL 31 mg/dL
== END 2023-11-28 12:39 | disposition home or self-care (01) ==
LOC: LAB 12:38
PROVIDERS: ATTEND Nurse Practitioner Family
DX: I10 Essential (primary) hypertension (principal); E66.9 Obesity, unspecified; Z13.1 Encounter for screening for diabetes mellitus; E78.5 Hyperlipidemia, unspecified; R53.83 Other fatigue
CPT/HCPCS: 36415; 80053; 80061; 82728; 83036; 83540; 83721; 84443; 84466; 85025